=== PATIENT | male | born 1970 | race Caucasian/White ===

== ENCOUNTER 2018-04-24 07:19 | Outpatient (CLI) | payer OTHER | END 2018-04-24 07:27 | disposition home or self-care (01) | LOC: SONOGRAMA 07:19 | DX: M25.511 Pain in right shoulder (principal) ==

== ENCOUNTER 2020-11-09 13:39 | Outpatient (CLI) | payer OTHER | END 2020-11-09 13:50 | disposition home or self-care (01) | LOC: MRI 13:39 | PROVIDERS: ATTEND Orthopaedic Surgery | DX: M17.11 Unilateral primary osteoarthritis, right knee (principal); M25.561 Pain in right knee; M25.562 Pain in left knee; S83.241A Other tear of medial meniscus, current injury, right knee, initial encounter | CPT/HCPCS: 73721 ==